=== PATIENT | male | born 2000 ===

== ENCOUNTER 2021-03-16 18:58 | Emergency (ER) | payer SELFPAY ==
[2021-03-16] MEDS ORDERED: SODIUM CHLORIDE 0.9% 1000 ML 1,000 ML IV ONE (22:34)
--- NOTE | 2021-03-16 22:38 | Emergency Department Report ---
ED Shortness of Breath HPI - General Chief Complaint: Upper Respiratory Infection Stated Complaint: BACK PAIN Time Seen by Provider: 03/16/21 21:17 Source: patient Mode of arrival: Ambulatory Limitations: Language Barrier - History of Present Illness Initial Comments: Patient is a 20-year-old male who presents emergency room with complaints of back pain, shortness of breath, cough, chest pain. Patient states the symptoms been going on for 3 weeks. Patient states symptoms worsen. Patient 3 weeks ago was diagnosed with Covid. Patient states he did not take any medication for the Covid. Patient states his chest pain is worse with deep breath and movement and cough.. Patient states his chest pain is better with rest patient states he is having a productive cough. Patient states at times his cough is dry. Patient states he has had phlegm and some streaking of blood in the phlegm.. Patient states that shortness of breath better with rest and worse with exertion. Patient denies recent fever. Patient states he had fever when he was initially diagnosed with Covid. Patient denies abdominal pain. Patient denies dizziness. Patient was seen by a local primary care/urgent care and sent here for further evaluation and admission. The patient presents with a directed order admission from the outside physician. Patient diagnosed with pleurisy, abscess of the little long and pneumonia, shortness of breath and back pain. Patient had a chest x-ray at the office and was found to have bilateral abscesses. Patient is not vaccinated gets COVID-19. Patient denies recent travel. Patient denies recent international travel. Patient denies exposure to the novel coronavirus. Patient denies sick contacts. Patient denies fever and chills. Patient denies diarrhea. Patient denies coming in contact with anybody with symptoms of the novel coronavirus. Complaint: shortness of breath, cough, chest pain -: Sudden, week(s) - Related Data Previous Rx's Medication Instructions Recorded Last Taken Type HYDROcodone/APAP 5-325 [[place] 1 each PO Q4HR PRN #10 tablet 03/17/21 Unknown Rx 5/325] methylPREDNISolone [Medrol 4MG 4 mg PO DAILY 6 Days #1 tab.ds.pk 03/17/21 Unknown Rx DOSEPAK (21 tabs)] Allergies Allergy/AdvReac Type Severity Reaction Status Date / Time No Known Allergies Allergy Verified 03/16/21 19:05 ED Review of Systems ROS: Stated complaint: BACK PAIN Other details as noted in HPI Constitutional: denies: chills, fever Eyes: denies: eye pain, eye discharge, vision change ENT: denies: ear pain, throat pain Respiratory: see HPI, cough, shortness of breath. denies: wheezing Cardiovascular: as per HPI, chest pain. denies: palpitations Endocrine: no symptoms reported Gastrointestinal: denies: abdominal pain, nausea, diarrhea Genitourinary: denies: urgency, dysuria Musculoskeletal: as per HPI, back pain. denies: joint swelling, arthralgia Skin: denies: rash, lesions Neurological: denies: headache, weakness, paresthesias Psychiatric: denies: anxiety, depression Hematological/Lymphatic: denies: easy bleeding, easy bruising ED Past Medical Hx - Past Medical History Previous Medical History?: No - Surgical History Past Surgical History?: No - Family History Family history: no significant - Social History Smoking Status: Never Smoker Substance Use Type: None - Medications Home Medications: Home Medications Medication Instructions Recorded Confirmed Last Taken Type HYDROcodone/APAP 5-325 [[place] 1 each PO Q4HR PRN #10 tablet 03/17/21 Unknown Rx 5/325] methylPREDNISolone [Medrol 4MG 4 mg PO DAILY 6 Days #1 tab.ds.pk 03/17/21 Unknown Rx DOSEPAK (21 tabs)] ED Physical Exam - General Limitations: Language Barrier General appearance: alert, in no apparent distress - Head Head exam: Present: atraumatic, normocephalic - Eye Eye exam: Present: normal appearance - ENT ENT exam: Present: mucous membranes moist - Neck Neck exam: Present: normal inspection - Respiratory Respiratory exam: Present: respiratory distress, decreased breath sounds - Cardiovascular Cardiovascular Exam: Present: regular rate, normal rhythm. Absent: systolic murmur, diastolic murmur, rubs, gallop - GI/Abdominal GI/Abdominal exam: Present: soft, normal bowel sounds - Rectal Rectal exam: Present: deferred - Extremities Exam Extremities exam: Present: normal inspection - Back Exam Back exam: Present: normal inspection - Neurological Exam Neurological exam: Present: alert, oriented X3 - Psychiatric Psychiatric exam: Present: normal affect, normal mood - Skin Skin exam: Present: warm, dry, intact, normal color. Absent: rash ED Course Vital Signs 03/16/21 03/16/21 03/16/21 19:05 20:56 20:58 Temperature 98.5 F 97.8 F Pulse Rate 86 78 Respiratory 20 16 Rate Blood Pressure 126/81 Blood Pressure 126/72 [Right] O2 Sat by Pulse 98 100 100 Oximetry 03/16/21 03/16/21 03/16/21 22:53 23:01 23:15 Temperature Pulse Rate Respiratory Rate Blood Pressure 136/90 136/90 Blood Pressure [Right] O2 Sat by Pulse 97 98 99 Oximetry 03/16/21 03/16/21 03/16/21 23:31 23:45 23:49 Temperature Pulse Rate Respiratory Rate Blood Pressure 145/56 145/56 134/74 Blood Pressure [Right] O2 Sat by Pulse 99 99 100 Oximetry 03/17/21 03/17/21 03/17/21 00:01 00:15 00:31 Temperature Pulse Rate Respiratory Rate Blood Pressure 134/74 145/56 135/73 Blood Pressure [Right] O2 Sat by Pulse 99 97 96 Oximetry 03/17/21 03/17/21 00:45 00:50 Temperature Pulse Rate 68 Respiratory 16 Rate Blood Pressure 135/73 Blood Pressure 121/59 [Right] O2 Sat by Pulse 96 97 Oximetry - Reevaluation(s) Reevaluation #1: I discussed all results and clinical findings with patient. I discussed plan of care with patient. Patient agrees with plan of care. Patient is stable for discharge. Patient will be discharged home. Patient given discharge instructions. Patient voiced understanding of discharge instructions. 03/17/21 00:17 ED Medical Decision Making - Lab Data Result diagrams: 03/16/21 22:37 03/16/21 22:37 - EKG Data -: EKG Interpreted by Me EKG shows normal: sinus rhythm, axis, intervals, QRS complexes, ST-T waves Rate: normal - Radiology Data Radiology results: report reviewed, image reviewed CHEST 2 VIEWS INDICATION / CLINICAL INFORMATION: Chest Pain. COMPARISON: None available. FINDINGS: SUPPORT DEVICES: None. HEART / MEDIASTINUM: No significant abnormality. LUNGS / PLEURA: Multiple small to moderate sized bilateral pulmonary nodules No pneumothorax. ADDITIONAL FINDINGS: No significant additional findings. IMPRESSION: 1. Probable pulmonary metastases. Given the young age, testicular neoplasm or melanoma are differential considerations. - Medical Decision Making Patient is a 20-year-old male that presents emergency room with shortness of breath, cough, chest pain. Patient's chest pain was only with deep breath. Patient had a chest x-ray which shows discrete masses. Patient's x-ray did not show any pneumonias. I personally reviewed the chest x-ray. Patient had labs done which were essentially unremarkable. Patient complained of chest pain with deep breath. Patient will be treated for pleurisy. Patient given Solu-Medrol and Dilaudid. Patient responded well to treatment. Patient was essentially pain-free upon discharge. Patient's cough had resolved. Patient discharged home with a Medrol Dosepak and pain medications. Patient will need to follow-up with housing property manager and oncologist and primary care. Patient given referrals to housing property manager and primary care. Patient stable for discharge. Patient not require any further emergency medical service. Patient not require inpatient service. I discussed all results and clinical findings with patient. I discussed plan of care with patient. Patient agrees with plan of care. Patient is stable for discharge. Patient will be discharged home. Patient given discharge instructions. Patient voiced understanding of discharge instructions. - Differential Diagnosis Pneumonia, shortness of breath, cough, chest pain, pleurisy, mass, Critical care attestation.: If time is entered above; I have spent that time in minutes in the direct care of this critically ill patient, excluding procedure time. ED Disposition Clinical Impression: Lung mass, Cough, Pleurisy, Hyperkalemia Back pain Qualifiers: Back pain location: thoracic back pain Chronicity: acute Back pain laterality: bilateral Qualified Code(s): M54.6 - Pain in thoracic spine Disposition: 01 HOME / SELF CARE / HOMELESS Is pt being admited?: No Does the pt Need Aspirin: No Condition: Stable Instructions: Lung Mass, Cough, Adult, [id number], Pleurisy Additional Instructions: patient to follow-up with primary care in 2 to 3 days. Patient to follow-up with pulmonology and oncology in 2 to 3 days. Patient to rest. Patient to increase water. Patient to avoid strenuous exercise or heavy lifting until cleared by pulmonology. Patient to take Tylenol or ibuprofen as needed for pain. Patient to take meds as directed. Patient to return to the ER if condition worsens, changes or new symptoms arise. Prescriptions: methylPREDNISolone [Medrol 4MG DOSEPAK (21 tabs)] 4 mg PO DAILY 6 Days #1 tab.ds.pk HYDROcodone/APAP 5-325 [[place] 5/325] 1 each PO Q4HR PRN #10 tablet PRN Reason: Pain Referrals: LAI FAJARDO MD [Staff Physician] - 2-3 Days MATTHEW TELLEZ MD [Staff Physician] - 2-3 Days Time of Disposition: 00:19 Print Language: INDONESIAN
--- NOTE | 2021-03-16 23:01 | XRay Report ---
CHEST 2 VIEWS INDICATION / CLINICAL INFORMATION: Chest Pain. COMPARISON: None available. FINDINGS: SUPPORT DEVICES: None. HEART / MEDIASTINUM: No significant abnormality. LUNGS / PLEURA: Multiple small to moderate sized bilateral pulmonary nodules No pneumothorax. ADDITIONAL FINDINGS: No significant additional findings. IMPRESSION: 1. Probable pulmonary metastases. Given the young age, testicular neoplasm or melanoma are differenti al considerations. Signer Name: Jaime Pineda MD Signed: 03/16/2021 10:57 PM Workstation Name: [id number]
[2021-03-16 23:07] LABS: Basophils # (Auto) 0.1 K/mm3 (0.0-0.1); Basophils % (Auto) 0.5 % (0.0-1.8); Eosinophils # (Auto) 0.7 K/mm3 (0.0-0.4); Hemoglobin 12.5 gm/dl (11.8-15.2); Mean Corpuscular HGB Conc 33 % (32-34); Mean Corpuscular Volume 83 fl (84-94); Monocytes # (Auto) 1.2 K/mm3 (0.0-0.8); Monocytes % (Auto) 10.1 % (0.0-7.3); Platelet Count 321 K/mm3 (140-440); Red Blood Count 4.56 M/mm3 (3.65-5.03); Red Cell Distribution Width 13.9 % (13.2-15.2)
[2021-03-16 23:31] LABS: Alanine Aminotransferase 14 units/L (7-56); Albumin 3.7 g/dL (3.9-5); BUN/Creatinine Ratio 17; Blood Urea Nitrogen 15 mg/dL (9-20); Calcium 9.1 mg/dL (8.4-10.2); Hemolysis Index 1
[2021-03-16] MEDS ORDERED: HYDROmorphone 1 MG/1 ML INJ IV ONE (23:59)
[2021-03-16] MEDS ORDERED: ONDANSETRON 4 MG/2 ML INJ IV ONE (23:59)
[2021-03-16] MEDS ORDERED: methylPREDNISolone Sod Succinate 125 MG/2 ML INJ IV ONE (23:59)
[2021-03-17 00:52] VITALS: BP 121/59
== END 2021-03-17 01:03 | disposition home or self-care (01) ==
LOC: ED 18:58
DX: R91.8 Other nonspecific abnormal finding of lung field (principal); E87.5 Hyperkalemia; R06.02 Shortness of breath; R05.9 Cough, unspecified; R07.89 Other chest pain; M54.6 Pain in thoracic spine; Z79.899 Other long term (current) drug therapy
CPT/HCPCS: 36415; 71046; 80053; 82140; 84484; 85025; 96361; 96374; 96375; 99284; J1170; J2405; J2930; J7030